=== PATIENT | male | born 1960 | race American Indian/Alaskan Native ===

== ENCOUNTER 2018-05-03 05:41 | Day surgery (SDC) | payer BC ==
[2018-05-03] MEDS ORDERED: NACL BACTERIOSTATIC INFILTRATI ONE (06:21)
--- NOTE | 2018-05-03 06:48 | Anesthesia Consultation ---
Anesthesia Consult and Med Hx Date of service: 05/03/18 - Airway Anesthetic Teeth Evaluation: Good ROM Head & Neck: Adequate Mental/Hyoid Distance: Adequate Mallampati Class: Class II Intubation Access Assessment: Probably Good - Pulmonary Exam CTA: Yes - Cardiac Exam Cardiac Exam: RRR - Pre-Operative Health Status ASA Pre-Surgery Classification: ASA2 Proposed Anesthetic Plan: General - Pulmonary Hx Smoking: Yes (1/2PPD FOR 38YRS) - Central Nervous System Hx Psychiatric Problems: No - Additional Comments Anesthesia Medical History Comments: Presently on antifungal medication for foot infection.
--- NOTE | 2018-05-03 06:48 | Anesthesia Day of Surgery ---
Anesthesia Day of Surgery - Day of Surgery Patient Examined: Yes Patient H&P Reviewed: Yes Patient is NPO: Yes
[2018-05-03] MEDS ORDERED: PERCOCET 5/325 PO PRN (06:49)
[2018-05-03] MEDS ORDERED: ZOFRAN IV PRN (06:49)
[2018-05-03] MEDS ORDERED: DILAUDID IV PRN (06:49)
[2018-05-03] MEDS ORDERED: ceFAZolin 2 GM in NACL 0.9% 100 ML IV ONE (07:00)
[2018-05-03] MEDS ORDERED: VERSED IV NR (07:00)
[2018-05-03] MEDS ORDERED: LACTATED RINGERS 1,000 ML IV SCH (07:00)
[2018-05-03] MEDS ORDERED: ANCEF/STERILE WATER 2 GM/20 ML 2 GM/20 ML SYRINGE IV SCH (07:00)
[2018-05-03] MEDS ORDERED: SUBLIMAZE ONE (07:13)
[2018-05-03] MEDS ORDERED: VERSED ONE (07:13)
[2018-05-03] MEDS ORDERED: DIPRIVAN 10 MG/ML IV ONE (07:13)
[2018-05-03] MEDS ORDERED: KETALAR ONE (07:14)
[2018-05-03] MEDS ORDERED: NUPERCAINAL ONE (07:25)
[2018-05-03] MEDS ORDERED: MARCAINE 0.5% INFILTRATI ONE (07:25)
[2018-05-03] MEDS ORDERED: NUPERCAINAL PR ONE (07:55)
[2018-05-03] MEDS ORDERED: NEO SYNEPHRINE/NS Syringe(OR USE) IV ONE (08:12)
[2018-05-03] MEDS ORDERED: XYLOCAINE MPF 2% ONE (08:35)
[2018-05-03] MEDS ORDERED: ROBINUL ONE ×2 (08:35)
[2018-05-03] MEDS ORDERED: BLOXIVERZ ONE (08:35)
[2018-05-03] MEDS ORDERED: ADRENALINE P/F ONE (08:47)
[2018-05-03] MEDS ORDERED: MARCAINE-EPI 0.5%-1:200,000 INFILTRATI ONE ×2 (08:47→08:55)
--- NOTE | 2018-05-03 09:03 | Discharge Summary ---
Short Stay Discharge Plan Activity: other (observe x 2 hrs then july d/c if stable and able to void. cl liq today. high fiber solid diet in am. begin sitz bath qid in am) Diet: other Wound: per your surgeon's advice Additional Instructions: surfak stool softner I po q am x 3 aleve I po q 6-8 hrs prn for breakthrough pain Follow up with: JANICE MUNOZ MD [Staff Physician] - 7 Days
--- NOTE | 2018-05-03 09:38 | Operative Report ---
PREOPERATIVE DIAGNOSIS: Large internal and external hemorrhoids. POSTOPERATIVE DIAGNOSIS: Large internal and external hemorrhoids. PROCEDURE: Anoscopy and hemorrhoidectomy x 2. SURGEON: Issac Ruvalcaba MD ANESTHESIA: General. ESTIMATED BLOOD LOSS: Minimal. COMPLICATIONS: None. DESCRIPTION OF PROCEDURE: The patient was taken to the operating room and placed in a jackknife position, prepped and draped in the usual sterile fashion. A rectal exam was performed and the anus dilated gently to 4 fingers. Anoscope was then gently introduced. Anoscopy was performed in all 4 quadrants. Two very large internal and external hemorrhoid bundles were noted at approximately 1 o'clock and 5 o'clock in the jackknife position. Both bundles were removed in similar fashion. 3-0 chromics were used to suture [id number] and obtain proximal control of the bundles. Allis clamps were used to grasp the dentate line. Tovar was then used to grasp the bundle. A 15 blade was used to incise the mucosa. Submucosal hemorrhoidectomy was then performed. The base of the hemorrhoid was grasped with a hemostat and secured with a [id number] suture. The mucosa was then closed with a running interlocking suture up to the dentate line. The air was then inspected for bleeding. One spot of oozing was noted. This area was then secured with another [id number] 3-0 chromic suture. Once again, the areas were irrigated and dried. Checked for hemostasis and noted to be dry. No other gross pathology was noted. A 0.5% Marcaine with epinephrine was infiltrated over all 4 quadrants as well the hemorrhoidectomy sites. A Gelfoam rectal plug soaked in dibucaine ointment was then left in the area for postoperative pain relief as well as pressure dressing. The patient tolerated the procedure well. JOB# [id number] HEENA/ATUL
--- NOTE | 2018-05-03 10:52 | Post Anesthesia Evaluation ---
- Post Anesthesia Evaluation Patient Participated: Yes Airway Patent: Yes Stable Respiratory Function: Yes Temp > 96.8F: Yes Pain Manageable: Yes Adequeate Hydration: Yes Anesthesia Complications: No
[2018-05-03 17:12] VITALS: BP 135/80
== END 2018-05-03 14:00 | disposition home or self-care (01) ==
LOC: OR 05:41
PROVIDERS: ATTEND Surgery
DX: K64.8 Other hemorrhoids (principal); K64.4 Residual hemorrhoidal skin tags; F17.210 Nicotine dependence, cigarettes, uncomplicated; Z90.49 Acquired absence of other specified parts of digestive tract; Z98.890 Other specified postprocedural states; Z79.899 Other long term (current) drug therapy
CPT/HCPCS: 46260; 88304; J0690; J2250; J2370; J2704; J2710; J3010; J7120; J0171